=== PATIENT | male | born 1990 | race Two or more races ===

== ENCOUNTER 2018-11-15 10:38 | Day surgery (SDC) | payer OTHER ==
[~2018-11-15 10:38] MED LIST: Buffered Lidocaine 1% SYRIN* 1 ML/SYRINGE INTRADERM ONE; Famotidine IV* 10 MG/ML 2 ML (20 mg) IV ONE; Famotidine IV* 10 MG/ML 2 ML (20 mg) ONE; Lactated Ringers 1000 ML Bag* 1,000 ML IV SCH; ceFAZolin 2 GM PREMIX in ORs 2 GM/50 ML BAG IVPB ONE
[2018-11-15] MEDS ORDERED: KETAMINE HCL* 50 MG/ML 10 ML VIAL ONE (11:27)
[2018-11-15] MEDS ORDERED: Ondansetron INJ* 2 MG/ML VIAL ONE (11:27)
[2018-11-15] MEDS ORDERED: Ketorolac INJ* 30 MG/ML 1 ML VIAL ONE (11:27)
[2018-11-15] MEDS ORDERED: Propofol* 10 MG/ML 20 ML BTL ONE (11:27)
[2018-11-15] MEDS ORDERED: Dexamethasone IV* 4 MG/ML 1 ML (4 MG) ONE (11:27)
[2018-11-15] MEDS ORDERED: Lidocaine 2% PF * 5 ML VIAL ONE (11:27)
[2018-11-15] MEDS ORDERED: fentaNYL* 50 MCG/ML 2 ML VIAL (100 MCG VIAL) ONE (11:27)
[2018-11-15] MEDS ORDERED: Midazolam* 1 MG/ML 5 ML VIAL (5 MG) ONE (11:28)
[2018-11-15] MEDS ORDERED: ROPIVACAINE 5 MG/ML 30 ML BTL (0.5%) ONE (12:32)
[2018-11-15] MEDS ORDERED: Bupivacaine 0.25% SDV PF* 10 ML VIAL INJ ONE (12:32)
[2018-11-15] MEDS ORDERED: Ondansetron INJ* 2 MG/ML VIAL IV PRN (16:09)
[2018-11-15] MEDS ORDERED: oxyCODONE/Acetamin 5/325 MG* TAB PO PRN (16:09)
[2018-11-15] MEDS ORDERED: fentaNYL* 50 MCG/ML 2 ML VIAL (100 MCG VIAL) IV PRN (16:09)
[2018-11-15] MEDS ORDERED: Naloxone* 0.4 MG/ML 1 ML VIAL IV PRN (16:09)
[2018-11-15 17:28] VITALS: BP 137/91
--- NOTE | 2018-11-22 21:07 | OP ---
DATE OF OPERATION: 11/15/18 - [facility] DATE OF : 89 SURGEON: Beto Mustafa MD TECHNICAL PUBLICATIONS MANAGER: LUPE Jacob. ANESTHESIOLOGIST: Dr. Mina. ANESTHESIA: General. PRE-OP DIAGNOSIS: Full thickness right thumb metacarpophalangeal joint ulnar collateral ligament tear with more instability. POST-OP DIAGNOSIS: Full thickness right thumb metacarpophalangeal joint ulnar collateral ligament tear with more instability. OPERATIVE PROCEDURE: Repair of right thumb metacarpophalangeal joint ulnar collateral ligament. INDICATIONS: Arcadio is 28 years old. The tear occurred about 3-1/2 to 4 weeks ago. I told him that we may need to reconstruct the ligament, but I was optimistic that we could repair it. The thumb was grossly unstable. We had talked about the risks and benefits including a risk of rerupture and a risk of persistent instability or stiffness despite doing the repair. He understands and wishes to proceed. ESTIMATED BLOOD LOSS: 2 mL. COMPLICATIONS: None. FINDINGS: See above and below. DESCRIPTION OF PROCEDURE: Arcadio was seen in the preoperative holding area. The correct site, side, and procedure were identified. We came back to the operating room where the arm was prepped and draped in the usual fashion and a time-out was performed. The arm was exsanguinated with the Esmarch and the tourniquet was inflated to 250 mmHg. I made a lazy-S incision over the ulnar aspect of the right thumb MCP joint. Dissection was carried down longitudinally to preserve the traversing sensory nerves. The adductor aponeurosis was split in line with its fibers and retracted palmarly and dorsally. The very scarred ulnar collateral ligament was identified. There was a lot of scar tissue forming. I excised all of this with a [place] blade. I went ahead and released the ligament palmarly off the volar plate and was able to rotate the ligament back into place and get it apposed to the base of the proximal phalanx. I went ahead and prepared the base of the footprint for the ulnar collateral ligament on the base of the proximal phalanx with a rongeur and a curette until I had some good bleeding bone. I then placed 2 Mini Mitek suture anchors in the footprint in the base of the proximal phalanx. I then performed 2 whipstitches into that ulnar collateral ligament and tied them off in a standard fashion and had excellent ligament to bone apposition. This repair was then augmented with multiple 3-0 Ethibond sutures, also the ligament was sewn back to the volar plate with 3-0 Ethibond suture. The stability at this point was excellent at 0 and 30 degrees of flexion. I repaired the adductor aponeurosis with 3-0 Vicryl suture. The skin was closed with 4-0 nylon suture. Marcaine was infiltrated all around the operative area. The wound was dressed with Xeroform and 4x4s and then a well padded thumb spica splint out past the tip of the thumb was applied. Tourniquet was deflated and the thumb pinked up immediately. He was taken to the recovery room in stable condition. [id number]/[facility] #: [id number] AMARIS
== END 2018-11-15 18:08 | disposition home or self-care (01) ==
LOC: OR 10:38
PROVIDERS: ATTEND Orthopaedic Surgery Hand Surgery
DX: S63.641A Sprain of metacarpophalangeal joint of right thumb, initial encounter (principal); W19.XXXA Unspecified fall, initial encounter; Y92.009 Unspecified place in unspecified non-institutional (private) residence as the place of occurrence of the external cause; Z72.0 Tobacco use
CPT/HCPCS: C1713; J0690; J1100; J1885; J2250; J2405; J2704; J2795; J3010; J3490